=== PATIENT | male | born 1950 | race African-American/Black ===

== ENCOUNTER 2018-04-11 18:14 | Inpatient (IN) ==
--- NOTE | 2018-04-11 18:35 | Emergency Department Note ---
Disposition Clinical Impression: Angioedema Qualifiers: Encounter type: initial encounter Qualified Code(s): T78.3XXA - Angioneurotic edema, initial encounter Adverse reaction to drug Qualifiers: Encounter type: initial encounter Qualified Code(s): T50.905A - Adverse effect of unspecified drugs, medicaments and biological substances, initial encounter Disposition: Admitted As Inpatient Condition: Fair Forms: ED Satisfaction Letter Time of Disposition: 18:53 Allergic Reaction HPI - General Chief complaint: ED Allergic Reaction Stated complaint: allergic reaction Time Seen by Provider: 04/11/18 18:18 Source: patient, EMS Mode of arrival: ambulatory Limitations: no limitations Nursing Notes Reviewed: Yes Vital Signs Reviewed: Yes - History of Present Illness HPI Narrative: Patient presents to the ED as a transfer from the [place] with angioedema. Patient reports that he has been taking lisinopril for some time. Reports that he started noticing some swelling in his lip 3 days ago, but continued to take his lisinopril. States that he woke up today and his lips were very swollen. Reported some difficulty breathing and some difficulty swallowing, but that is been the same throughout the day and is not progressing. No fever, chills, or shortness of breath. He does have some very mild chest pain but states he is currently being worked up for that and recently had a nuclear stress test. Denies any abdominal pain, nausea, vomiting or diarrhea. No rashes - Related Data Home Medications Medication Instructions Recorded Confirmed Aspirin [Lo-Dose Aspirin EC] 81 mg PO DAILY 02/17/16 11/27/17 Atorvastatin Calcium [Lipitor] 0.5 tab PO DAILY 02/17/16 11/27/17 Carboxymethylcellulose Sodium 1 dropperful BOTH EYES QID 02/17/16 11/27/17 [Refresh Liquigel] Lidocaine 4% CRM (LMX) [Lmx 4] 1 appl TP TID 02/17/16 11/27/17 Oxybutynin Chloride [Ditropan Xl] 5 mg PO BID 02/17/16 11/27/17 Quetiapine Fumarate [Seroquel] 0.5 tab PO HS 02/17/16 11/27/17 RX: Amlodipine Besylate 10 mg PO DAILY 02/17/16 11/27/17 RX: Fluticasone Propionate 1 spr NS DAILY 02/17/16 11/27/17 [Flonase Allergy Relief] RX: Folic Acid 1 mg PO DAILY 02/17/16 11/27/17 RX: Omeprazole [PriLOSEC] 1 cap PO DAILY 02/17/16 11/27/17 Spironolactone [Aldactone] 12.5 mg PO DAILY 02/17/16 11/27/17 Previous Rx's Medication Instructions Recorded Sildenafil Citrate [Viagra] 50 mg PO DAILY PRN #6 tablet 02/17/16 Polyethylene Glycol 3350 [MiraLAX 1 scoop PO DAILY PRN #510 gm 03/29/16 Powder Bulk 17.9 Oz] RX: Tramadol HCl [Ultram] 50 mg PO TID PRN #90 tab 03/29/16 Allergies Allergy/AdvReac Type Severity Reaction Status Date / Time acetaminophen Allergy unknown Verified 11/27/17 14:18 [From Darvocet-N] gabapentin Allergy unknown Verified 11/27/17 14:18 propoxyphene Allergy HEART Verified 11/27/17 14:18 [From Darvocet-N] RACING Review of Systems: As reviewed in the HPI. All other systems reviewed are negative or normal. Past Medical History - Past Medical History Attestation: Yes The following information was validated with the patient. Source: patient Medical history: Reports: cancer, hypertension Surgical history: Reports: herniorrhaphy, prostatectomy Psychiatric history: Reports: depression, PTSD - Social History Smoking Status: Never smoker Smokeless Tobacco Status: No Alcohol use: Reports: none Drug use: Reports: none Physical Exam CONSTITUTIONAL: [well appearing, alert and in no acute distress] EYES: [EOMI, clear conjunctiva, PERRLA] HENT: [Normocephalic, atraumatic, moist mucus membranes, normal oropharynx, there is significant swelling of the upper and lower lips, but this does not extend into the oral cavity, there is no tongue elevation or swelling, the posterior oropharynx is clear without edema or erythema, easily able to visualize the bottom of the uvula,] NECK: [normal inspection, full ROM, trachea midline, no obvious swelling, no stridor or trismus] PULMONARY: [normal lung sounds bilaterally, normal chest rise and fall, no respiratory distress or stridor, no wheezes, no rales, no rhonchi CARDIOVASCULAR: [regular rate, regular rhythm, normal heart sounds, no murmurs, distal extremities are warm and well perfused] GASTROINSTESTINAL: [soft, non-tender, non-rigid, non-distended, no guarding, no rebound, normal bowel sounds] GENITOURINARY/RECTAL: [deferred] NEUROLOGIC: [Alert, oriented x3, normal speech, moves all extremities] EXTREMITIES: [Normal inspection, full ROM, no tenderness, no pedal edema, normal capillary refill] MUSCULOSKELETAL: [no gross deformities, atraumatic] SKIN: [No cyanosis, no diaphoresis, normal color, warm, no rash] PSYCHIATRIC: [normal mood and affect] - General Limitations: no limitations General appearance: alert, in no apparent distress Course Course Narrative: Ranitidine 50mg IV Benadryl 50mg IV Solu-medrol 125mg IV Patient admitted the hospitalist service Vital Signs Temperature 98.3 F 04/11/18 18:16 Pulse Rate 79 04/11/18 18:16 Respiratory Rate 20 04/11/18 18:16 Blood Pressure 152/106 04/11/18 18:16 O2 Sat by Pulse Oximetry 99 04/11/18 18:16 Temperature 98.3 F 04/11/18 18:16 Pulse Rate 79 04/11/18 18:16 Respiratory Rate 20 04/11/18 18:16 Blood Pressure 152/106 04/11/18 18:16 O2 Sat by Pulse Oximetry 99 04/11/18 18:36 Oxygen Delivery Oxygen Delivery Room Air
--- NOTE | 2018-04-11 18:36 | Emergency Department Note ---
Disposition Clinical Impression: Angioedema, Adverse reaction to drug Disposition: Admitted As Inpatient Condition: Fair General Adult HPI - General Chief complaint: ED Allergic Reaction Stated complaint: allergic reaction Time Seen by Provider: 04/11/18 18:18 Source: patient, EMS Limitations: no limitations - History of Present Illness Pain Scale: 0 - Related Data Home Medications Medication Instructions Recorded Confirmed RX: Aspirin [Lo-Dose Aspirin EC] 81 mg PO DAILY 02/17/16 04/11/18 RX: Atorvastatin Calcium [Lipitor] 20 mg PO QPM 02/17/16 04/11/18 RX: Fluticasone Propionate 1 spr NS DAILY 02/17/16 04/11/18 [Flonase Allergy Relief] RX: Lidocaine 4% CRM (LMX) [Lmx 4] 1 appl TP TID 02/17/16 04/11/18 RX: Quetiapine Fumarate [Seroquel] 25 mg PO 1900,2100 02/17/16 04/11/18 RX: Spironolactone [Aldactone] 12.5 mg PO DAILY 02/17/16 04/11/18 RX: Acetaminophen [Extra Strength 500 mg PO Q6H PRN 04/11/18 04/11/18 Non-Aspirin] RX: Calcium Carbonate 650 mg PO DAILY 04/11/18 04/11/18 RX: Calcium Polycarbophil [Fiber 625 - 1,250 mg PO DAILY 04/11/18 04/11/18 Laxative] RX: Cholecalciferol (D-3) [Vitamin 1,000 unit PO DAILY 04/11/18 04/11/18 D] RX: DULoxetine [Cymbalta] 30 mg PO DAILY 04/11/18 04/11/18 RX: Docusate Sodium [Dok] 100 mg PO BID 04/11/18 04/11/18 RX: Nitroglycerin [Nitrostat] 0.4 mg SL Q5M PRN 04/11/18 04/11/18 RX: Oxybutynin Chloride [Ditropan 10 mg PO DAILY 04/11/18 04/11/18 Xl] RX: Ranitidine HCl [Acid Rn Circulating] 150 mg PO BID 04/11/18 04/11/18 RX: Temazepam [Restoril] 30 mg PO HS PRN 04/11/18 04/11/18 Previous Rx's Medication Instructions Recorded RX: Metoprolol [Lopressor] 50 mg PO BID #30 tablet 04/12/18 RX: PredniSONE [Deltasone] See Taper PO DAILY 9 Days tablet 04/12/18 Allergies Allergy/AdvReac Type Severity Reaction Status Date / Time acetaminophen [From Percocet] Allergy Hives Verified 04/11/18 20:33 gabapentin Allergy unknown Verified 11/27/17 14:18 oxycodone [From Percocet] Allergy Hives Verified 04/11/18 20:33 propoxyphene Allergy HEART Verified 11/27/17 14:18 [From Darvocet-N] RACING hydromorphone [From Dilaudid] AdvReac Headache Verified 04/11/18 20:49 lisinopril AdvReac Severe Verified 04/11/18 19:05 Angioedema Past Medical History - Past Medical History Medical history: Reports: cancer, hypertension Surgical history: Reports: herniorrhaphy, prostatectomy Psychiatric history: Reports: depression, PTSD - Social History Smoking Status: Never smoker Smokeless Tobacco Status: No Alcohol use: Reports: none Drug use: Reports: none Physical Exam - General Limitations: no limitations General appearance: alert, in no apparent distress Course Vital Signs Temperature 98.3 F 04/11/18 18:16 Pulse Rate 79 04/11/18 18:16 Respiratory Rate 20 04/11/18 18:16 Blood Pressure 152/106 04/11/18 18:16 O2 Sat by Pulse Oximetry 99 04/11/18 18:16 Temperature 99.0 F 04/12/18 11:52 Pulse Rate 82 04/12/18 12:00 Respiratory Rate 16 04/12/18 12:00 Blood Pressure 172/74 04/12/18 12:00 O2 Sat by Pulse Oximetry 95 04/12/18 12:00 Oxygen Delivery Oxygen Delivery Room Air Medical Decision Making - Lab Data Result diagrams: 04/12/18 04:40 04/12/18 04:40 Lab Results 04/11/18 Range/Units 20:45 POC Glucose 104 H (70-99) mg/dL Attestation Statement - Attestation Attestation: I examined this patient and my medical decision-making was reviewed with the Resident Physician. I agree with the documented findings, disposition and treatment plan as described except to the extent set forth below. Patient to the ED with angioedema. Transfer from the [place]. Patient was started on lisinopril a days ago. He started having swelling 3 days ago but continued to take the medicine. Termination he is in no acute distress. He does have a moderate amount of swelling to the lips. No swelling of the tongue uvula or posterior pharynx. He is having no difficulty breathing. Plan. Patient is having no difficulty breathing. He has no swelling of the tongue or posterior pharynx. It all anterior to the teeth. Patient will be admitted for obser vation.
[2018-04-11] MEDS ORDERED: Famotidine 20 MG/2 ML VIAL IVP ONE (19:58)
[2018-04-11] MEDS ORDERED: methylPREDNISolone 125 MG/2 ML VIAL IVP ONE (19:58)
[2018-04-11] MEDS ORDERED: Naloxone 0.4 MG/ML INJ IVP PRN (19:59)
[2018-04-11] MEDS ORDERED: Ondansetron 4 MG/2 ML VIAL IVP PRN (19:59)
--- NOTE | 2018-04-11 20:04 | Internal Med History&Physical ---
<Kam Lucas - Last Filed: 04/11/18 20:34> Date of Encounter: 04/11/18 Time of Encounter: 20:03 Internal Medicine - H&P: HPI Chief complaint: Lips swelling Admitted From: Home Plans for Post Hospital Care: Home History of present illness: Mr. Frederick is a 67 [address] patient with a past medical history of hypertension, hyperlipidemia, and radiation therapy for prostate cancer who presented complaining of swelling in his ellipse and difficulty swallowing foods and liquids since this morning. Of note, patient started taking lisinopril for days ago for hypertension. Patient reports taking his last dose of lisinopril this morning. Patient denies eating any new foods or other symptoms that may be contributing to current allergic reaction. He reports previous drug allergies to Percocet, Darvocet, and Dilaudid. He received Benadryl at the CT prior to arrival and reports no improvement in lip swelling. Patient is protecting his airway at this time and SPO2 is 99% on room air. 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) Current living situation: Home Activity Level: Independent ambulation - Family History Mother Hx Family Endocrine Disorder: Yes (Diabetes mellitus) Father Hx Family Cancer: Yes (Stomach) Internal Medicine - H&P: Meds Aspirin [Lo-Dose Aspirin EC] 81 mg PO DAILY 02/17/16 [History] Atorvastatin Calcium [Lipitor] 20 mg PO QPM 02/17/16 [History] Fluticasone Propionate [Flonase Allergy Relief] 1 spr NS DAILY 02/17/16 [History] Lidocaine 4% CRM (LMX) [Lmx 4] 1 appl TP TID 02/17/16 [History] Quetiapine Fumarate [Seroquel] 25 mg PO 1900,2100 02/17/16 [History] Spironolactone [Aldactone] 12.5 mg PO DAILY 02/17/16 [History] Acetaminophen [Extra Strength Non-Aspirin] 500 mg PO Q6H PRN 04/11/18 [History] Calcium Carbonate 650 mg PO DAILY 04/11/18 [History] Calcium Polycarbophil [Fiber Laxative] 625 - 1,250 mg PO DAILY 04/11/18 [History] Cholecalciferol (D-3) [Vitamin D] 1,000 unit PO DAILY 04/11/18 [History] DULoxetine [Cymbalta] 30 mg PO DAILY 04/11/18 [History] Docusate Sodium [Dok] 100 mg PO BID 04/11/18 [History] Nitroglycerin [Nitrostat] 0.4 mg SL Q5M PRN 04/11/18 [History] Oxybutynin Chloride [Ditropan Xl] 10 mg PO DAILY 04/11/18 [History] Ranitidine HCl [Acid Hand Assembler For Puller Over] 150 mg PO BID 04/11/18 [History] Temazepam [Restoril] 30 mg PO HS PRN 04/11/18 [History] Allergy/AdvReac Type Severity Reaction Status Date / Time acetaminophen [From Percocet] Allergy Hives Verified 04/11/18 20:33 gabapentin Allergy unknown Verified 11/27/17 14:18 oxycodone [From Percocet] Allergy Hives Verified 04/11/18 20:33 propoxyphene Allergy HEART Verified 11/27/17 14:18 [From Darvocet-N] RACING hydromorphone [From Dilaudid] AdvReac Headache Verified 04/11/18 20:49 lisinopril AdvReac Severe Verified 04/11/18 19:05 Angioedema All Systems PM: A 10-system review of systems was performed and is negative for pertinent findings except as documented above in the HPI. - Constitutional Constitutional: no chills, no fever(s), no lethargy, no weakness - EENT Eyes: no blurry vision, no diplopia Nose, mouth and throat: dry mouth, dysphagia, lip swelling, neck pain (Chronic arthritis pain), odynophagia, no bleeding gums, no change in voice, no facial pain, no mouth pain, no nasal congestion, no nasal obstruction, no neck mass, no post-nasal drip, no sinus pain, no sinus pressure, no sore throat, no throat swelling, no tongue swelling - Cardiovascular Cardiovascular ROS IM: no chest pain, no dyspnea, no dyspnea on exertion, no palpitations - Respiratory Respiratory: no cough, no dyspnea, no wheezing, no chest congestion - Gastrointestinal Gastrointestinal: dysphagia, odynophagia, no abdominal pain, no diarrhea, no nausea, no vomiting - Genitourinary Genitourinary ROS male: urinary hesitancy (Prostate cancer), no dysuria, no hematuria, no nocturia, no urinary frequency - Musculoskeletal Musculoskeletal ROS IM: no numbness, no tingling - Integumentary Integumentary IM: no erythema, no rash - Neurological Neurological ROS: no numbness, no tingling, no weakness - Psychiatric Psychiatric: anxiety, no depression - Endocrine Endocrine IM: no polydipsia, no polyphagia, no polyuria - Hematologic/Lymphatic Hematologic/Lymphatic: no easy bleeding, no easy bruising - Allergic/Immunologic Allergic/Immunologic: lip swelling, no tongue swelling, no throat swelling, no uticaria, no wheezing - Constitutional Vitals: Temp Pulse Resp BP Pulse Ox 98.3 F 79 20 152/106 99 04/11/18 18:16 04/11/18 18:16 04/11/18 18:16 04/11/18 18:16 04/11/18 18:36 General appearance: Present: cooperative, A&O X 3, pleasant, no acute distress, answers questions appropriately Exam: Awake - Head Head exam: Present: atraumatic, normocephalic - Eye Eye exam: Present: PERRL, conjuntiva pink, sclera anicteric Pupils: Present: PERRL - ENT ENT exam: Present: mucous membranes moist, normal oropharynx (Significant swelling localized to the upper and lower lips, mallampati score 1) - Expanded ENT Exam Mouth exam: Absent: muffled voice, normal external inspection, tongue hypertrophy Throat exam: Present: normal inspection. Absent: post pharyngeal edema, tonsillar erythema, tonsillomegaly - Neck Neck exam general surgery: Present: supple, trachea midline. Absent: lym phadenopathy - Expanded Neck Exam Neck exam: Absent: anterior neck swelling, tracheal deviation (No stridor) - Respiratory Respiratory exam: Present: CTAB. Absent: accessory muscle use, rales, rhonchi, stridor, wheezes - Cardiovascular Cardiovascular exam: Present: RRR, +S1, +S2. Absent: diastolic murmur, gallop, rubs, systolic murmur - GI/Abdominal GI/Abdominal exam: Present: normal bowel sounds, soft, no peritoneal signs. Absent: distended, guarding, tenderness - Extremities Exam Extremities exam: Present: warm, radial pulses palpable and symmetrical. Absent: calf tenderness, cyanotic, pedal edema - Back Exam Back exam: Present: normal inspection. Absent: paraspinal tenderness, tenderness - Neurological Exam Neurological exam: Present: CN II-XII intact, oriented X3, no focal deficits. 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 Continue Benadryl, Pepcid, and Solu-Medrol every 6 hours EpiPen at bedside Clear liquid diet, continue close monitoring. Patient Is DNR-CCA code status, he is okay with intubation for few days if necessary for transient angioedema. Anticipate transfer out of ICU once angioedema improved (2) HTN (hypertension) Current Visit: Yes Status: Chronic Assessment and plan: Discontinue lisinopril Hydralazine ordered every 6 hours prn SBP > 170 Qualifiers: Hypertension type: essential hypertension Qualified Code(s): I10 - Essential (primary) hypertension (3) Hyperlipidemia Current Visit: No Status: Chronic Assessment and plan: Resume statin Qualifiers: Hyperlipidemia type: unspecified Qualified Code(s): E78.5 - Hyperlipidemia, unspecified (4) Prostate cancer Current Visit: No Status: Chronic Assessment and plan: Patient is status post radiation therapy for prostate cancer complicated by "two holes burned in his colon". Continue monitoring. (5) Arthritis Current Visit: No Status: Chronic Assessment and plan: Continue monitoring (6) DVT prophylaxis Current Visit: Yes Status: Acute Assessment and plan: Heparin subcutaneous - Time Spent With Patient Total time spent is greater than 50% in coordination of care (as documented) at patient's floor/unit and/or counseling patient: <Eugenio Harrington - Last Filed: 04/11/18 21:15> Date of Encounter: 04/11/18 Time of Encounter: 20:20 - EENT Nose, mouth and throat: dry mouth, lip swelling, no sinus pressure, no sore throat - Cardiovascular Cardiovascular ROS IM: no chest pain, no dyspnea, no dyspnea on exertion - Respiratory Respiratory: no cough, no dyspnea, no wheezing, no stridor - Integumentary Integumentary IM: no erythema, no pruritus, no rash - Allergic/Immunologic Allergic/Immunologic: lip swelling, no tongue swelling, no throat swelling, no itchy eyes, no uticaria, no wheezing - Constitutional Vitals: Temp Pulse Resp BP Pulse Ox 98.3 F 84 20 146/95 98 04/11/18 18:16 04/11/18 20:19 04/11/18 20:19 04/11/18 20:19 04/11/18 20:19 General appearance: Present: cooperative, A&O X 3, pleasant, no acute distress - Eye Eye exam: Present: EOMI, PERRL. Absent: scleral icterus Pupils: Present: normal accommodation - ENT ENT exam: Present: mucous membranes dry, normal oropharynx Additional comments: large/extremely swollen lips but no other soft tissue edema; airway, uvula, and oropharynx appear normal. - Neck Neck exam general surgery: Present: full ROM, normal inspection, supple, trachea midline. Absent: tenderness, nuchal rigidity, thyromegaly - Respiratory Respiratory exam: Present: CTAB. Absent: accessory muscle use, rales, respiratory distress, rhonchi, stridor, wheezes - Cardiovascular Cardiovascular exam: Present: RRR, +S1, +S2. Absent: diastolic murmur, systolic murmur - GI/Abdominal GI/Abdominal exam: Present: normal bowel sounds, soft. Absent: tenderness - Extremities Exam Extremities exam: Present: normal capillary refill, warm, radial pulses palpable and symmetrical. Absent: calf tenderness, cyanotic, joint swelling, pedal edema - Back Exam Back exam: Present: normal inspection. Absent: CVA tenderness (L), CVA tenderness (R) - Neurological Exam Neurological exam: Present: alert, CN II-XII intact, oriented X3, no focal deficits - Psychiatric Psychiatric exam: Present: normal affect, normal mood - Skin Skin exam: Present: dry, intact, warm - Time Spent With Patient Total time spent is greater than 50% in coordination of care (as documented) at patient's floor/unit and/or counseling patient: - Attending Attestation I discussed the patient [place], PMH, ROS, [facility] labs, and exam findings with Dr. Lucas. I then saw and examined independently as well. I assessed patient in the ER with Dr. Lucas and ER staff. Patient has significant swelling of both lips but no other appreciable soft tissue swelling. Airway appears normal and he has no stridor. He denies any present dyspnea, but he did complain of SOB e arlier today. Patient is DNRCCA code status, but he is agreeable to temporary intubation for airway protection in the setting of angioedema. We will place him on scheduled Bendaryl, Pepcid, Solumedrol, and PRN albuterol aerosols. We will monitor him closely in ICU. If necessary, we will intubate to protect his airway. Patient voiced understanding and agreement with plan. Other than my comments above and noted exam findings, I agree with Dr. Lucas's assessment and plan.
[2018-04-11] MEDS ORDERED: *HR* EPINEPHrine 1 MG/ML AMPUL IM PRN (20:20)
[2018-04-11] MEDS ORDERED: Temazepam 15 MG CAPSULE PO PRN (20:45)
[2018-04-11] MEDS: *HR* Heparin 5,000 UNIT/ML VIAL SQ SCH (21:00)
[2018-04-11] MEDS: MethylPREDNISolone 40 MG/ML VIAL IVP SCH (23:20)
[2018-04-12 04:54] LABS: Hematocrit 38.4 % (37.5-50.1); Hemoglobin 13.4 g/dL (12.9-16.9); Mean Corpuscular HGB Conc 34.9 g/dL (31.6-35.5); Mean Corpuscular Hemoglobin 31.6 pg (28.0-33.3); Mean Corpuscular Volume 90.6 fL (83.0-100.0); Mean Platelet Volume 10.6 fL (9.4-12.4); Platelet Count 156 K/mcL (140-400); Red Blood Count 4.24 M/mcL (4.19-5.50); Red Cell Distribution Width 13.1 % (11.5-14.5)
[2018-04-12 05:11] LABS: BUN/Creatinine Ratio 17 (6-26); Blood Urea Nitrogen 17 mg/dL (8-23); Carbon Dioxide 23 mEq/L (23-29); Chloride 109 mEq/L (98-107); Glucose 149 mg/dL (70-105); Osmolality,Calculated 294 (280-300); Potassium 4.2 mEq/L (3.5-5.1); Sodium 140 mEq/L (136-145); eGFR For Non-African Americans > 60 (> 60)
[2018-04-12] MEDS ORDERED: Famotidine 20 MG/2 ML VIAL IVP SCH ×2 (06:00→18:00)
[2018-04-12] MEDS: MethylPREDNISolone 40 MG/ML VIAL IVP SCH (06:10)
[2018-04-12] MEDS: *HR* Heparin 5,000 UNIT/ML VIAL SQ SCH (06:13)
[2018-04-12] MEDS ORDERED: Aspirin Enteric Coated 81 MG Tablet PO SCH (09:00)
[2018-04-12] MEDS ORDERED: *HR* EPINEPHrine 1 MG/ML AMPUL IM PRN (10:29)
[2018-04-12] MEDS ORDERED: Naloxone 0.4 MG/ML INJ IVP PRN (10:29)
[2018-04-12] MEDS ORDERED: Ondansetron 4 MG/2 ML VIAL IVP PRN (10:29)
[2018-04-12] MEDS ORDERED: Temazepam 15 MG CAPSULE PO PRN (10:29)
[2018-04-12] MEDS ORDERED: Ipratropium/Albuterol Neb 3 ML IH PRN ×2 (10:29)
[2018-04-12] MEDS ORDERED: MethylPREDNISolone 40 MG/ML VIAL IVP SCH (12:00)
[2018-04-12 12:21] VITALS: BP 172/74
--- NOTE | 2018-04-12 12:45 | Discharge Summary ---
<Angeline Cavazos N - Last Filed: 04/12/18 12:51> - NOTES TO OUTPATIENT PROVIDER Notes to Outpatient Provider: Patient had evidence for angioedema on presentation. Treated with solumedrol, benadryl, and pepcid with observation in the ICU. Did not require intubation of FFP. Discontinued lisinopril and started metoprolol 50mg BID no discharge. Also gave prednisone taper on discharge as well. Orders not resulted at time of discharge: Pending orders 04/12/18 04:40 C1 Esterase Inhibitor, Funct AM 0400 Date of Encounter: 04/12/18 Time of Encounter: 09:30 - Discharge Diagnosis (1) Angioedema Priority: Primary Status: Acute Qualifiers: Encounter type: initial encounter Qualified Code(s): T78.3XXA - Angioneurotic edema, initial encounter Hospital course: Mr. Frederick is a 67 year old [place] patient with a past medical history of hypertension who presented to the [place] ED because of swelling in his lips and difficulty swallowing foods and liquids. This occurred approximately 3 days prior to his presentation and progressively worsened. Patient recently underwent a change in his hypertensive medications from amlodipine to lisinopril one week ago. He was suspected to have angioedema on physical examination, received benadryl and transferred to [facility] emergency department for further care. The diagnosis was confirmed at [facility] ED however the patient had a patent airway and no swelling of the tongue or posterior pharynx. He was treated with benadryl, 125 mg solumedrol, and pepcid and admitted to the ICU for close monitoring. While in the ICU the patient remained stable and did not experience respiratory distress. He did not require intubation or FFP. He received scheduled benadryl, pepcid, and IV steroids. On reevaluation the following morning the patient had evidence for edema of the lips, but no edema of the tongue or pharynx were noted. The patient was deemed stable for transfer out of the ICU. He was then discharged in stable condition to home with a steroid taper. His home lisinopril was discontinued and he was started on metoprolol 50mg BID. - Time Spent with Patient Total time spent providing and/or coordinating discharge services: - Discharge Medications Prescriptions: RX: Metoprolol [Lopressor] 50 mg PO BID #30 tablet RX: PredniSONE [Deltasone] See Taper PO DAILY 9 Days tablet Home Medications: RX: Aspirin [Lo-Dose Aspirin EC] 81 mg PO DAILY 02/17/16 [History] RX: Atorvastatin Calcium [Lipitor] 20 mg PO QPM 02/17/16 [History] RX: Fluticasone Propionate [Flonase Allergy Relief] 1 spr NS DAILY 02/17/16 [History] RX: Lidocaine 4% CRM (LMX) [Lmx 4] 1 appl TP TID 02/17/16 [History] RX: Quetiapine Fumarate [Seroquel] 25 mg PO 1900,2100 02/17/16 [History] RX: Spironolactone [Aldactone] 12.5 mg PO DAILY 02/17/16 [History] RX: Acetaminophen [Extra Strength Non-Aspirin] 500 mg PO Q6H PRN 04/11/18 [History] RX: Calcium Carbonate 650 mg PO DAILY 04/11/18 [History] RX: Calcium Polycarbophil [Fiber Laxative] 625 - 1,250 mg PO DAILY 04/11/18 [History] RX: Cholecalciferol (D-3) [Vitamin D] 1,000 unit PO DAILY 04/11/18 [History] RX: DULoxetine [Cymbalta] 30 mg PO DAILY 04/11/18 [History] RX: Docusate Sodium [Dok] 100 mg PO BID 04/11/18 [History] RX: Nitroglycerin [Nitrostat] 0.4 mg SL Q5M PRN 04/11/18 [History] RX: Oxybutynin Chloride [Ditropan Xl] 10 mg PO DAILY 04/11/18 [History] RX: Ranitidine HCl [Acid Domestic Cleaner] 150 mg PO BID 04/11/18 [History] RX: Temazepam [Restoril] 30 mg PO HS PRN 04/11/18 [History] RX: Metoprolol [Lopressor] 50 mg PO BID #30 tablet 04/12/18 [Rx] RX: PredniSONE [Deltasone] See Taper PO DAILY 9 Days tablet 04/12/18 [Rx] Allergies/Adverse Reactions: Allergy/AdvReac Type Severity Reaction Status Date / Time acetaminophen [From Percocet] Allergy Hives Verified 04/11/18 20:33 gabapentin Allergy unknown Verified 11/27/17 14:18 oxycodone [From Percocet] Allergy Hives Verified 04/11/18 20:33 propoxyphene Allergy HEART Verified 11/27/17 14:18 [From Darvocet-N] RACING hydromorphone [From Dilaudid] AdvReac Headache Verified 04/11/18 20:49 lisinopril AdvReac Severe Verified 04/11/18 19:05 Angioedema Date of admission: 04/11/18 22:31 Primary care physician: Rolando Dubon Jr, MD Discharging clinician: Angeline Cavazos Anticipated date of discharge: 04/12/18 - Constitutional Vitals: Temp Pulse Resp BP Pulse Ox 99.0 F 82 16 172/74 95 04/12/18 11:52 04/12/18 12:00 04/12/18 12:00 04/12/18 12:00 04/12/18 12:00 General appearance: Present: cooperative, A&O X 3, pleasant, no acute distress Exam: constitutional: resting comfortably in bed, no acute distress HEENT: PERRL, EOMI, lips are grossly edematous however no oropharyngeal edema noted. The posterior pharynx is clear without any erythema or edema. uvula is midline and completely visible. Neck: no jvd, normal inspection, trachea midline chest: symmetrical chest wall rise, no tenderness to palpation Cardiovascular: regular rate and rhythm, no murmurs Respiratory: clear to auscultation bilaterally, no rales or ronchi Abdomen: soft nontender, no guarding or rigidity Extremities: no cyanosis, clubbing, or edema Psych: appropriate mood and affect Neurological: no obvious neurological deficit - Patient Status Disposition: Home, Self-Care Condition: Fair Functional capacity at discharge: independent ambulation Overall status at discharge: patient is progressing back to baseline - Discharge Instructions Instructions: Angioedema (GEN) Follow Up With: Rolando Dubon Jr, MD [Primary Care Provider] - (please make appointment for early next week (sunday-sunday)) Additional Instructions: return to the emergency department if you develop any worsening swelling, trouble swallowing or breathing. Return for any fevers, headaches, difficulty breathing, shortness of breath, or chest pain. Return for abdominal pain, nausea, vomiting or diarrhea. Return for any new or concerning findings. Stop your lisinopril and start metoprolol 50mg twice a day for your blood pressure. Follow up with your primary care provider over the next few days for reevaluation. Take steroid taper as prescribed. - Diet and Activity Activity: increase activity as tolerated Diet: advance to your usual diet <DericRafael Gan - Last Filed: 04/12/18 15:33> Orders not resulted at time of discharge: Pending orders 04/12/18 04:40 C1 Esterase Inhibitor, Funct AM 0400 Date of Encounter: 04/12/18 - Discharge Diagnosis (1) Angioedema Status: Acute Qualifiers: Encounter type: initial encounter Qualified Code(s): T78.3XXA - Angioneurotic edema, initial encounter Hospital course: Mr. Frederick is a 67 year old male - Time Spent with Patient Total time spent providing and/or coordinating discharge services: Date of admission: 04/11/18 22:31 Primary care physician: Rolando Dubon Jr, MD - Constitutional Vitals: Temp Pulse Resp BP Pulse Ox 99.0 F 82 16 172/74 95 04/12/18 11:52 04/12/18 12:00 04/12/18 12:00 04/12/18 12:00 04/12/18 12:00 - Attending Attestation I examined this patient and my medical decision-making was reviewed with the Resident Physician. I agree with the documented findings, disposition and treatment plan as described except to the extent set forth below. We decided to discharge I think he will be quite safe, will have beta jv to cover the loss of the MOUSTAPHA inhibitor, with close outpatient follow-up.
[2018-04-12] MEDS ORDERED: *HR* Heparin 5,000 UNIT/ML VIAL SQ SCH (14:00)
[2018-04-12] MEDS ORDERED: Ipratropium/Albuterol Neb 3 ML IH SCH ×2 (20:24)
[2018-04-13] MEDS ORDERED: Aspirin Enteric Coated 81 MG Tablet PO SCH (09:00)
== END 2018-04-12 13:25 | disposition home or self-care (01) | DRG 916 ==
LOC: ICNU 18:14 → EMEROOARM 18:14 → ICNU 20:33
PROVIDERS: ADMIT Hospitalist; ATTEND Hospitalist